=== PATIENT | male | born 1975 | race Caucasian/White ===

== ENCOUNTER 2019-03-22 00:40 | Emergency (ER) | payer OTHER ==
[~2019-03-22] VITALS: Ht 175.3 cm; Wt 88.6 kg
[2019-03-22 00:41] VITALS: BP 160/98
== END 2019-03-22 02:02 | disposition home or self-care (01) ==
LOC: ED 01:13
DX: T24.211A Burn of second degree of right thigh, initial encounter (principal); X19.XXXA Contact with other heat and hot substances, initial encounter; Y93.89 Activity, other specified; Y92.89 Other specified places as the place of occurrence of the external cause; Y99.8 Other external cause status
CPT/HCPCS: 16020; 90471; 90715; 99284